=== PATIENT | female | born 1985 | race Caucasian/White ===

== ENCOUNTER → 2020-05-07 | Outpatient (REF) | payer OTHER | LOC: M LAB REF 10:09 | PROVIDERS: ATTEND Physician Assistant | DX: Z11.59 Encounter for screening for other viral diseases (principal) ==

== ENCOUNTER → 2022-04-08 | Outpatient (CLI) | payer OTHER | LOC: M PLAIMG 10:04 | PROVIDERS: ATTEND Internal Medicine | DX: R22.1 Localized swelling, mass and lump, neck (principal) ==

== ENCOUNTER → 2023-06-18 | Outpatient (CLI) | payer OTHER ==
[~2023-06-18] MED LIST: ISOVUE-370 76% 100ML VIAL As Ordered ONE
== END ==
LOC: M RAD 07:15
PROVIDERS: ATTEND Otolaryngology
DX: J32.0 Chronic maxillary sinusitis (principal); R22.1 Localized swelling, mass and lump, neck
CPT/HCPCS: 70486; 70491; Q9967

== ENCOUNTER → 2023-08-24 | Outpatient (CLI) | payer OTHER | LOC: M SLEEP 20:00 | PROVIDERS: ATTEND Internal Medicine | DX: R06.83 Snoring (principal) ==

== ENCOUNTER 2024-03-25 09:07 | Day surgery (SDC) | payer OTHER ==
[~2024-03-25] VITALS: Ht 167.6 cm; Wt 93.4 kg
[~2024-03-25 09:07] MED LIST changes: +D200CAP PO; -ISOVUE-370 76% 100ML VIAL As Ordered ONE; +ROSU20TA86 PO; +UBIQ200C3 PO
[2024-03-25] MEDS ORDERED: propofoL 200 MG/20 ML VIAL As Ordered ONE (10:05)
[2024-03-25] MEDS ORDERED: dexmedeTOMIDine (4MCG/ML)200MCG/50ML BTL (PRECEDEX) As Ordered ONE (10:05)
[2024-03-25] MEDS ORDERED: fentaNYL 250 MCG/5 ML INJECTION As Ordered ONE (10:05)
[2024-03-25] MEDS ORDERED: SUGAMMADEX SODIUM 500 MG/5 ML VIAL (BRIDION) As Ordered ONE (10:05)
[2024-03-25] MEDS ORDERED: MIDAZOLAM INJ 2MG/2ML VIAL As Ordered ONE (10:05)
[2024-03-25] MEDS ORDERED: ROCURONIUM BROMIDE 50MG/5ML VIAL As Ordered ONE (10:05)
[2024-03-25] MEDS ORDERED: ACETAMINOPHEN 1000MG/100ML IV BAG As Ordered ONE (10:13)
[2024-03-25] MEDS ORDERED: SODIUM CHLORIDE 0.9% NASAL GEL 15GM (AYR) As Ordered ONE (10:57)
[2024-03-25] MEDS: LIDOCAINE W/EPINEPHRINE 1% 20ML VIAL As Ordered ONE (12:05)
[2024-03-25] MEDS ORDERED: ONDANSETRON 4MG 2ML VIAL As Ordered ONE (12:09)
[2024-03-25] MEDS: EPINEPHrine 1MG/ML INJ 30ML MD-VIAL As Ordered ONE (12:25)
[2024-03-25] MEDS: METHYLENE BLUE 0.5% (5MG/ML) 10 ML AMP (PROVAYBLUE) As Ordered ONE (12:26)
[2024-03-25] MEDS ORDERED: oxyCODONE 5MG TAB PO PRN (14:25)
[2024-03-25] MEDS ORDERED: fentaNYL 100 MCG/2 ML INJECTION IV PRN (14:25)
[2024-03-25] MEDS: ONDANSETRON 4MG 2ML VIAL IV PRN (15:06)
[2024-03-25 15:55] VITALS: BP 132/80; TEMP 97.5; O2SAT 99
== END 2024-03-25 16:03 | disposition home or self-care (01) ==
LOC: M SDC 09:07
PROVIDERS: ATTEND Otolaryngology
DX: J32.0 Chronic maxillary sinusitis (principal); J32.2 Chronic ethmoidal sinusitis; J31.0 Chronic rhinitis; J34.2 Deviated nasal septum; F43.10 Post-traumatic stress disorder, unspecified; Z79.899 Other long term (current) drug therapy; F17.210 Nicotine dependence, cigarettes, uncomplicated
CPT/HCPCS: 30520; 31254; 31256; 61782; 81025; 88300; 88305; C2625; J0131; J0171; J2250; J2405; J3010; Q9968